=== PATIENT | male | born 1985 | race Caucasian/White ===

== ENCOUNTER 2017-05-18 11:56 | Emergency (ER) | payer SELFPAY ==
[2017-05-18 12:00] VITALS: BP 139/81
[2017-05-18] MEDS ORDERED: PRED50TA PO (12:22)
[2017-05-18] MEDS ORDERED: INDO75CA3 PO (12:22)
--- NOTE | 2017-05-18 12:23 | PHYS DOC ---
Past Medical History Past Medical History: Other Additional Past Medical Histor: GOUT Past Surgical History: Other Additional Past Surgical Histo: LEFT KNEE Alcohol Use: None Drug Use: None Adult General Chief Complaint Chief Complaint: ANKLE PROBLEM HPI HPI Patient is a 31 year old male with history of gout who presents today complaining of right ankle gout flare up that began a couple weeks ago. Patient states he is not on any maintenance medicine for gout. He states he usually waits when he has a flare up and he comes to the ED and gets indomethacin and or prednisone. Patient denies any fever. He states he has no PCP. Review of Systems Review of Systems Constitutional: Denies fever or chills [] Musculoskeletal:right ankle gout flare up Integument: Denies rash or skin lesions [] Neurologic: Denies headache, focal weakness or sensory changes [] Endocrine: Denies polyuria or polydipsia [] Allergies Allergies Allergies Coded Allergies Type Severity Reaction Last Updated Verified No Known Drug Allergies 05/18/17 No Physical Exam Physical Exam Constitutional: Well developed, well nourished, no acute distress, non-toxic appearance. [] Skin: Warm, dry, no erythema, no rash. [] Back: No tenderness, no CVA tenderness. [] Extremities: Right ankle with small amount of soft tissue swelling. No warmth or erythema. Full range of motion to the right ankle. +2 right pedal pulse. Cap refill less than 2 seconds the right toes. Sensation intact to the right lower extremity. Neurologic: Alert and oriented X 3, normal motor function, normal sensory function, no focal deficits noted. [] Psychologic: Affect normal, judgement normal, mood normal. [] Current Patient Data Vital Signs Vital Signs Date Time Temp Pulse Resp B/P (MAP) Pulse Ox O2 Delivery O2 Flow Rate FiO2 05/18/17 12:00 97.1 69 18 99 Room Air 97.1 EKG EKG [] Radiology/Procedures Radiology/Procedures [] Course & Med Decision Making Course & Med Decision Making Pertinent Labs and Imaging studies reviewed. (See chart for details) Patient has right ankle gout flare up. He was discharged with indomethacin and prednisone. Provided him with a doctor's list and recommended following up as soon as he can. Dragon Disclaimer Dragon Disclaimer This electronic medical record was generated, in whole or in part, using a voice recognition dictation system. Departure Departure Impression: Primary Impression: Gout attack Disposition: HOME, SELF-CARE Condition: STABLE Patient Instructions: Gout, [id number] Additional Instructions: You were seen for gout flareup. Try and establish care with a primary care doctor and follow up as soon as you can. Ensure you take food with indomethacin. Scripts Indomethacin (INDOMETHACIN) 75 Mg Capsule.er 1 CAP PO BID, #60 CAP Take with food Prov: HOWARD FIGUEROA APRN 05/18/17 Prednisone (PREDNISONE) 50 Mg Tablet 1 TAB PO DAILY, #5 TAB Prov: HOWARD FIGUEROA APRN 05/18/17 Problem Qualifiers Primary Impression: Gout attack Gout site: ankle Gout etiology: unspecified cause Laterality: right Qualified Codes: M10.9 - Gout, unspecified HOWARD FIGUEROA APRN May 18, 2017 12:23
== END 2017-05-18 12:25 | disposition home or self-care (01) ==
LOC: ER 11:56
DX: M10.9 Gout, unspecified (principal)
CPT/HCPCS: 99283

== ENCOUNTER 2017-06-20 21:00 | Emergency (ER) | payer SELFPAY ==
[~2017-06-20] VITALS: Ht 172.7 cm; Wt 113.4 kg
[~2017-06-20 21:00] MED LIST: INDO75CA3 PO; PRED50TA PO
[2017-06-20 21:50] VITALS: BP 148/89
[2017-06-20] MEDS ORDERED: AMOX1TAB61 PO (22:45)
[2017-06-20] MEDS ORDERED: CORTISPORIN AS (22:45)
[2017-06-20] MEDS ORDERED: CORTISPORIN (22:45)
--- NOTE | 2017-06-20 22:46 | PHYS DOC ---
Past Medical History Past Medical History: Other Additional Past Medical Histor: tm tubes Past Surgical History: Other Additional Past Surgical Histo: knee surgery Alcohol Use: None Drug Use: None Adult General Chief Complaint Chief Complaint: EARACHE/EAR PAIN HPI HPI Patient is a 31 year old male who presents to the ED with left ear complaints. He has had "brown stuff" coming out of his left ear for 2-3 days. He has had some ear pain and discomfort for several days. He did have some nasal congestion that he attributed to seasonal allergies. Patient had ear tubes as a child but has not had chronic ear problems. No known drug allergies. Review of Systems Review of Systems Constitutional: Denies fever or chills [] HENT: Positive recent nasal congestion attributed to allergies Allergies Allergies Allergies Coded Allergies Type Severity Reaction Last Updated Verified No Known Drug Allergies 05/18/17 No Physical Exam Physical Exam Constitutional: Well developed, well nourished, no acute distress, non-toxic appearance. [] HENT: Normocephalic, atraumatic, bilateral external ears normal, right EAC normal, right TM has a streak of red and appears retracted. Left EAC has liquid and brownish purulent discharge. The TM is obscured by discharge in the ear canal. Eyes: conjunctiva normal, no discharge. [] Neck: Normal range of motion, no stridor. [] Extremities: No tenderness, no cyanosis, no clubbing, ROM intact, no edema. [] Neurologic: Alert and oriented X 3, normal motor function, normal sensory function, no focal deficits noted. [] Current Patient Data Vital Signs Vital Signs Date Time Temp Pulse Resp B/P (MAP) Pulse Ox O2 Delivery O2 Flow Rate FiO2 06/20/17 21:50 98.4 78 18 98 Room Air 98.4 EKG EKG [] Radiology/Procedures Radiology/Procedures [] Course & Med Decision Making Course & Med Decision Making Pertinent Labs and Imaging studies reviewed. (See chart for details) 31-year-old male with brownish somewhat clear/liquid discharge out of the left ear. I'm not able to see the TM. He might have external otitis or he might have an otitis media that ruptured. See instructions for plan. [] Dragon Disclaimer Dragon Disclaimer This electronic medical record was generated, in whole or in part, using a voice recognition dictation system. Departure Departure Impression: Primary Impression: Left otitis media with spontaneous rupture of eardrum Disposition: HOME, SELF-CARE Condition: STABLE Referrals: NO PCP (PCP) Patient Instructions: Otitis Media, Adult Additional Instructions: As we discussed, I believe you have a middle ear infection with a ruptured eardrum, which is causing the brown stuff running out of your ear. It's possible you have and external ear infection, also called otitis externa or "swimmer's ear". We will treat with both oral antibiotics and antibiotic eardrops. Don't put anything except the eardrops in your ear. Don't try to "clean out" your ear. Don't squirt any water in there. Recheck in 7-10 days with primary care doctor. Scripts Amoxicillin/Potassium Clav (AUGMENTIN 875-125 TABLET) 1 Each Tablet 1 TAB PO BID, #20 TAB Prov: AIDE MANRIQUE MD 06/20/17 [Cortisporin] No Conflict Check 3 DROP QID, #1 Prov: AIDE MANRIQUE MD 06/20/17 [Cortisporin] No Conflict Check Prov: AIDE MANRIQUE MD 06/20/17 AIDE MANRIQUE MD Jun 20, 2017 22:45
== END 2017-06-20 23:15 | disposition home or self-care (01) ==
LOC: ER 21:00
DX: H66.012 Acute suppurative otitis media with spontaneous rupture of ear drum, left ear (principal)
CPT/HCPCS: 99283